=== PATIENT | female | born 1965 | race Two or more races ===

== ENCOUNTER 2024-01-27 07:17 | Outpatient (CLI) | payer OTHER ==
[~2024-01-27 07:17] MED LIST: KEPPRA500 MG PO; TEGRETOL XR400 MG PO
== END 2024-01-27 07:20 | disposition home or self-care (01) ==
LOC: SONOGRAMA 07:17
PROVIDERS: ATTEND Pathology Anatomic Pathology
DX: E04.1 Nontoxic single thyroid nodule (principal)

== ENCOUNTER 2024-05-18 07:27 | Outpatient (CLI) | payer OTHER | END 2024-05-18 07:30 | disposition home or self-care (01) | LOC: SONOGRAMA 07:27 | PROVIDERS: ATTEND Pathology Anatomic Pathology & Clinical Pathology | DX: D34 Benign neoplasm of thyroid gland (principal); E04.1 Nontoxic single thyroid nodule ==